=== PATIENT | female | born 1975 | race Caucasian/White ===

== ENCOUNTER 2017-08-03 | Emergency (ER) | payer SELFPAY ==
[~2017-08-03] VITALS: Ht 172.7 cm; Wt 64.4 kg
[2017-08-03] MEDS ORDERED: IBUP200C76 (00:24)
--- NOTE | 2017-08-03 01:15 | NUR ---
Dr. Pierre at bedside for MSE.
--- NOTE | 2017-08-03 02:09 | NUR ---
Patient back to ER from CT via wheelchair.
--- NOTE | 2017-08-03 02:25 | NUR ---
Patient eloped from facility. ER physician notified. Last seen 214. Patient was treated in the ER for laceration and was awaiting discharge.
[2017-08-03 02:34] VITALS: BP 151/98
== END 2017-08-03 02:35 | disposition left against medical advice (07) ==
LOC: ER 00:05
DX: S01.81XA Laceration without foreign body of other part of head, initial encounter (principal); F17.210 Nicotine dependence, cigarettes, uncomplicated; Z95.0 Presence of cardiac pacemaker; Z79.1 Long term (current) use of non-steroidal anti-inflammatories (NSAID); V17.0XXA Pedal cycle driver injured in collision with fixed or stationary object in nontraffic accident, initial encounter; Y93.89 Activity, other specified; Y92.89 Other specified places as the place of occurrence of the external cause; Y99.8 Other external cause status
CPT/HCPCS: 70450; 72125; A4217; A4663